=== PATIENT | male | born 1945 | race Caucasian/White ===

== ENCOUNTER 2017-01-18 07:29 | Observation (INO) ==
[2017-01-18 08:07] LABS: Basophils % 0.4 %; Eosinophils # 0.2 K/mcL (0.0-0.6); Hematocrit 44.3 % (37.5-50.1); Hemoglobin 14.7 g/dL (12.9-16.9); Immature Granulocytes % 0.4 % (0-4); Lymphocytes # 2.4 K/mcL (0.6-4.6); Lymphocytes % 24.8 %; Mean Corpuscular HGB Conc 33.2 g/dL (31.6-35.5); Mean Corpuscular Hemoglobin 30.6 pg (28.0-33.3); Mean Corpuscular Volume 92.1 fL (83.0-100.0); Mean Platelet Volume 9.2 fL (9.4-12.4); Monocytes # 0.8 K/mcL (0.0-1.3); Monocytes % 8.2 %; Neutrophils # 6.2 K/mcL (1.6-8.9); Platelet Count 190 K/mcL (140-400); Red Blood Count 4.81 M/mcL (4.19-5.50); Segmented Neutrophils % 64.2 %
[2017-01-18 08:08] LABS: INR 1.1; Prothrombin Time 11.9 Seconds (9.4-12.1)
[2017-01-18 08:10] LABS: Activated Partial Thrombo Time 30.5 Seconds (26.0-36.0)
[2017-01-18 08:14] LABS: BUN/Creatinine Ratio 12 (6-26); Blood Urea Nitrogen 12 mg/dL (8-26); Calcium 9.6 mg/dL (8.6-10.8); Carbon Dioxide 25 mEq/L (19-29); Chloride 103 mEq/L (98-109); Glucose 169 mg/dL (70-99); Osmolality,Calculated 286 (280-300); Potassium 4.2 mEq/L (3.5-4.5); Sodium 136 mEq/L (136-145); eGFR For African Americans > 60 (> 60); eGFR For Non-African Americans > 60 (> 60)
[2017-01-18] MEDS ORDERED: Naloxone 0.4 MG/ML INJ IVP PRN (11:40)
[2017-01-18] MEDS ORDERED: Ondansetron ODT 4 MG TAB.RAPDIS SL PRN (11:40)
[2017-01-18] MEDS ORDERED: Acetaminophen 325 MG TABLET PO PRN (11:40)
--- NOTE | 2017-01-18 11:50 | Internal Med History&Physical ---
<Ashley Harris - Last Filed: 01/18/17 14:01> Date of Encounter: 01/18/17 Time of Encounter: 11:48 Assessment and Plan (1) Sinus bradycardia Current visit: Yes Status: Acute 71-year-old male with history of hypertension, hyperlipidemia, diabetes, hypothyroidism, BPH, diverticulosis presented for evaluation of chest pain and diarrhea yesterday. He noted several episodes of watery diarrhea, fatigue, nausea without vomiting, fever, bilateral lower anterior chest pain that lasted from 0730 until 1800 yesterday. He states that his symptoms resolved yesterday evening and has no pain this morning and he has had no more episodes of diarrhea or chest pain. He was evaluated in the emergency department and all of his lab work was found to be within normal limits, troponin is negative. EKG showed sinus bradycardia.Episodes of bradycardia were noted on telemetry and the patient is noted to be hypertensive with systolic blood pressures in the 150s. The patient is currently afebrile and in no acute distress. The patient notes that he occasionally has episodes of dizziness when standing quickly from a seated position, no episodes of syncope. He does note also that when he takes blood pressure at home he has noted that his heart rate has been in the 40s multiple times. He has discussed this with his PCP who decreased his lilisinopril from 10 mg to 5 mg around 1 year ago. Patient is currently stable and asymptomatic. We will admit to evaluate bradycardia. Plan: -Telemetry, oximetry -Q4hr vitals -ECHO -Cardiac diet -Cardiology consulted, appreciate recommendations -TSH -Hold BP meds -AM labs -GI prophylaxis: omeprazole -DVT prophylaxis: heparin SQ (2) HTN (hypertension) Current visit: Yes Status: Chronic Currently holding lisinopril Qualifiers: Hypertension type: essential hypertension Qualified Code(s): I10 - Essential (primary) hypertension (3) Hyperlipidemia Current visit: No Status: Chronic Continue statin Qualifiers: Hyperlipidemia type: unspecified Qualified Code(s): E78.5 - Hyperlipidemia , unspecified (4) Diabetes mellitus Current visit: Yes Status: Chronic Levemir 40 units daily at bedtime, low-dose sliding scale, ACHS Accu-Checks Qualifiers: Diabetes mellitus type: type 2 Diabetes mellitus complication status: with unspecified complications Diabetes mellitus meterman insulin use: unspecified meterman insulin use status Qualified Code(s): E11.8 - Type 2 diabetes mellitus with unspecified complications (5) Hypothyroidism Current visit: No Status: Chronic Continue home levothyroxine, will check TSH Qualifiers: Hypothyroidism type: unspecified Qualified Code(s): E03.9 - Hypothyroidism , unspecified (6) BPH (benign prostatic hyperplasia) Current visit: No Status: Chronic Continue home meds Qualifiers: Lower urinary tract symptom presence: unspecified whether lower urinary tract symptoms present Qualified Code(s): N40.0 - Benign prostatic hyperplasia without lower urinary tract symptoms (7) DVT prophylaxis Current visit: Yes Status: Acute Heparin SQ Internal Medicine - H&P: HPI Chief complaint: chest pain Admitted From: Emergency Dept Plans for Post Hospital Care: Home History of present illness: Mr. Grier is a 71 year old male with a PMH of hypertension, hyperlipidemia, diabetes hypothyroidism, BPH, and diverticulosis who presented to the emergency department this morning with complaints of chest pain and diarrhea. He states that yesterday he had diarrhea which he states was watery 7 times throughout the day. He also had chest pain in the lower portion of the chest on both the right and left sides that was non-radiating and constant, which "felt like diverticulitis." He states that this pain began around 0730 and lasted until 1800. He states that it was associated with fatigue, fever, nausea without vomiting. She has no recent sick contacts and has not had no other illnesses prior to this episode of diarrhea and chest pain. He does note that he and his traveled to [place] and returned on January 10. He denies any headache, dizziness, vision changes, shortness of breath, palpitations, wheezing, cough, abdominal pain, dysuria, back pain, numbness or tingling, rashes. He notes that he has been taking lisinopril 10 mg a day until about a year ago when it was decreased to 5 mg a day because he told his PCP that he was having episodes of dizziness when he stood up. He does take his blood pressure at home and has noted multiple times that he has had a heart rate in the 40s. He states that he has discussed this with his PCP with no further follow-up. He does not have any cardiac history. He notes that he had a negative stress test 07/08/2005. His only blood pressure medication is lisinopril, he has not taken a beta rico and has had no recent medication changes. He does have a family history of cardiac disease. He states that his mother had heart disease and his father of an ND at age 55. He has never had an ND. While the patient was being evaluated for his chest pain in the emergency department, he was noted to have a heart rate in the 40s on telemetry. An EKG shows sinus bradycardia. The patient was admitted for further workup of his asymptomatic sinus bradycardia. Past Med Surg Social Fam HX - Past Medical History Source: patient Medical history: diabetes, hyperlipidemia, hypertension, thyroid disease ( hypothyroidism), other (diverticulosis, histoplasmosis of left eye, undecended testicle, BPH) Psychiatric history: no psych history - Past Surgical History Surgical History: herniorrhaphy, other (Left eye implant, undecended testicle 1963/1964, wisdom tooth extraction) - Social History Smoking Status: Former smoker (Quit 1969) Smokeless Tobacco Status: No Alcohol use: occasionally Drug use: none Occupational status: retired Current living situation: Home, With Family Activity Level: Independent ambulation Recent Out of Country Travel Within the Last 8 Weeks: No Exposure or Possible Exposure to Illness During Travel: No - Family History Mother Adopted: No Race: Family Member Ethnicity: Non- Living Status: Hx Family Cardiac Disorders: Yes (CAD) Hx Family Autoimmune Disorders: Yes (RA) Father Adopted: No Race: Family Member Ethnicity: Non- Living Status: Age at : 57 Cause of : ND Hx Family Cardiac Disorders: Yes (ND age 55) Internal Medicine - H&P: Meds Aspirin [Ecotrin] 325 mg PO Q48H 01/18/17 [History] Finasteride [Proscar] 5 mg PO DAILY 01/18/17 [History] Insulin Glargine [Lantus] 40 unit SQ HS 01/18/17 [History] Levothyroxine [Synthroid] 150 mcg PO DAILY 01/18/17 [History] Nateglinide [Starlix] 120 mg PO TIDAC 01/18/17 [History] RX: Lisinopril [Zestril] 10 mg PO DAILY 01/18/17 [History] Simvastatin [Zocor] 40 mg PO HS 01/18/17 [History] Tamsulosin [Flomax] 0.4 mg PO DAILY 01/18/17 [History] metFORMIN [Glucophage] 1,000 mg PO BIDWM 01/18/17 [History] 3 Allergy/AdvReac Type Severity Reaction Status Date / Time No Known Allergies Allergy Verified 01/18/17 10:31 All Systems PM: A 10-system review of systems was performed and is negative for pertinent findings except as documented above in the HPI. - Constitutional Vitals: Temp Pulse Resp BP Pulse Ox 98 F 41 16 158/74 99 01/18/17 07:33 01/18/17 11:00 01/18/17 11:42 01/18/17 11:42 01/18/17 11:00 General appearance: Present: cooperative, A&O X 3, pleasant, no acute distress, answers questions appropriately - Head Head exam: Present: atraumatic, normal inspection, normocephalic - Eye Eye exam: Present: conjuntiva pink, sclera anicteric Additional comments: Left eye implant with delayed movement and some visual capabilities Right EOMI, PERRLA - ENT ENT exam: Present: mucous membranes moist, normal oropharynx - Neck Neck exam general surgery: Present: full ROM, normal inspection, supple, trachea midline. Absent: lymphadenopathy, tenderness, nuchal rigidity, thyromegaly - Expanded Neck Exam Neck exam: Absent: carotid bruit - Respiratory Respiratory exam: Present: CTAB. Absent: accessory muscle use, chest wall tenderness, rales, respiratory distress, rhonchi, wheezes, tachypnea - Cardiovascular Cardiovascular exam: Present: bradycardia, +S1, +S2. Absent: diastolic murmur, gallop, irregular rhythm, rubs, systolic murmur - GI/Abdominal GI/Abdominal exam: Present: normal bowel sounds, soft, no peritoneal signs. Absent: distended, tenderness - Neurological Exam Neurological exam: Present: alert, CN II-XII intact, oriented X3, no focal deficits, strengths equal and symetr throughout. Absent: motor sensory deficit , pronater drift, facial droop, speech deficit - Psychiatric Psychiatric exam: Present: normal affect, normal mood - Skin Skin exam: Present: dry, intact, normal color, warm. Absent: erythema, rash Internal Med - H&P Results - Labs CBC & Chem 7: 01/18/17 07:56 01/18/17 07:56 - EKG Data -: EKG Interpreted by Myself Rate: bradycardia <Neeru Ibarra - Last Filed: 01/18/17 16:24> Date of Encounter: 01/18/17 Internal Medicine - H&P: HPI History of present illness: Mr. Grier is a 71 year old male All Systems PM: A 10-system review of systems was performed and is negative for pertinent findings except as documented above in the HPI. - Constitutional Vitals: Temp Pulse Resp BP Pulse Ox 97.6 F 45 15 148/75 96 01/18/17 15:03 01/18/17 15:03 01/18/17 15:03 01/18/17 15:03 01/18/17 15:03 Internal Med - H&P Results - Labs CBC & Chem 7: 01/18/17 07:56 01/18/17 07:56 - Attending Attestation Patient independently seen and examined with family present at bedside. Resting comfortably in bed and denies any distress. Reports history of HR in the 40s but never below 40. States he has no cardiac history. Currently admitted for asymptomatic bradycardia. Restarted home dose of Lisinopril and cardiology consultation requested. Case was discussed with the resident physician Dr. Kelle Harris. I agree with her documented findings, assessment, and plan, except as stated above.
[2017-01-18] MEDS ORDERED: D5% in Water 1,000 ML IVC PRN (11:59)
[2017-01-18] MEDS ORDERED: Dextrose Gel 15 GM PO PRN ×2 (11:59)
[2017-01-18] MEDS ORDERED: *HR* Dextrose 50 % in Water (Syg) 50 ML SYRINGE IVP PRN (11:59)
--- NOTE | 2017-01-18 12:12 | Urgent Care Visit Notes ---
Disposition Clinical Impression: Bradycardia Disposition: Admitted As Inpatient History of Present Illness - General Chief complaint: ED Chest Pain Stated complaint: Chest Pain/EPIGASTRIC PAIN Time Seen by Provider: 01/18/17 07:34 Limitations: no limitations Nursing Notes Reviewed: Yes Vital Signs Reviewed: Yes - History of Present Illness HPI Narrative: 71-year-old male who presents with concern for chest pain. He does have atypical chest pain that started 2 days ago. He denies recent stress testing or cardiac catheterization. He also reports that he has had bradycardia at home. He has no history of beta rico usage or medication changes which would contribute to bradycardia. She denies fever, cough, congestion. Pain Scale: 0 - Related Data Home Medications Medication Instructions Recorded Confirmed Aspirin [Ecotrin] 325 mg PO Q48H 01/18/17 01/18/17 Finasteride [Proscar] 5 mg PO DAILY 01/18/17 01/18/17 Insulin Glargine [Lantus] 40 unit SQ HS 01/18/17 01/18/17 Levothyroxine [Synthroid] 150 mcg PO DAILY 01/18/17 01/18/17 Lisinopril [Zestril] 10 mg PO DAILY 01/18/17 01/18/17 Nateglinide [Starlix] 120 mg PO TIDAC 01/18/17 01/18/17 Simvastatin [Zocor] 40 mg PO HS 01/18/17 01/18/17 Tamsulosin [Flomax] 0.4 mg PO DAILY 01/18/17 01/18/17 metFORMIN [Glucophage] 1,000 mg PO BIDWM 01/18/17 01/18/17 Allergies Allergy/AdvReac Type Severity Reaction Status Date / Time No Known Allergies Allergy Verified 01/18/17 10:31 All systems ED: reviewed and negative except as stated. Past Medical History - Past Medical History Medical history: Reports: diabetes, hyperlipidemia, hypertension, thyroid disease (hypothyroidism), other (diverticulosis, histoplasmosis of left eye, undecended testicle, BPH) Surgical history: Reports: herniorrhaphy, other (Left eye implant, undecended testicle 1963/1964, wisdom tooth extraction) Psychiatric history: Reports: no psych history - Social History Smoking Status: Former smoker (Quit 1969) Smokeless Tobacco Status: No Alcohol use: Reports: occasionally Drug use: Reports: none Physical Exam Sinus bradycardia heart rate 40 bpm on 12-lead ECG. - General Limitations: Present: no limitations General appearance: Present: alert, in no apparent distress - Head Head exam: Present: atraumatic - Eye Eye exam: Present: normal appearance - ENT ENT exam: Present: normal exam - Neck Neck exam: Present: normal inspection - Chest Chest inspection: Present: normal inspection - Respiratory Respiratory exam: Present: normal lung sounds bilaterally - Cardiovascular Cardiovascular exam: Present: regular rate, normal rhythm - Extremities Exam Extremities exam: Present: normal inspection, full ROM - Neurological Exam Neurological exam: Present: alert, oriented X3, CN II-XII intact - Psychiatric Psychiatric exam: Present: normal affect, normal mood - Skin Skin exam: Present: warm, dry Medical Decision Making - [facility] Narrative Medical decision making narrative: 71-year-old male who presents with atypical chest pain. No recent stress testing or cardiac catheterization. Ultimately had negative cardiac biomarkers. Received aspirin. Plan to admit for evaluation of bradycardia which was found incidentally. He is not symptomatically at this time. His heart rate has been stable and he does have sinus bradycardia. I would admit for possible EP consultation versus cardiology consultation. - Medical Records Medical records reviewed: Yes I reviewed the patient's medical records. - Lab Data Lab results reviewed: Yes I reviewed the patient's lab results. Result diagrams: 01/18/17 07:56 01/18/17 07:56 Lab Results 01/18/17 01/18/17 01/18/17 Range/Units 07:56 07:56 07:56 WBC 9.7 (4.3-11.1) K/mcL RBC 4.81 (4.19-5.50) M/mcL Hgb 14.7 (12.9-16.9) g/dL Hct 44.3 (37.5-50.1) % MCV 92.1 (83.0-100.0) fL MCH 30.6 (28.0-33.3) pg MCHC 33.2 (31.6-35.5) g/dL RDW 13.0 (11.5-14.5) % Plt Count 190 (140-400) K/mcL MPV 9.2 L (9.4-12.4) fL Immature Gran % 0.4 (0-4) % Seg Neutrophils % 64.2 % Lymphocytes % 24.8 % Monocytes % 8.2 % Eosinophils % 2.0 % Basophils % 0.4 % Neutrophils # 6.2 (1.6-8.9) K/mcL Lymphocytes # 2.4 (0.6-4.6) K/mcL Monocytes # 0.8 (0.0-1.3) K/mcL Eosinophils # 0.2 (0.0-0.6) K/mcL Basophils # 0.0 (0.0-0.2) K/mcL PT 11.9 (9.4-12.1) Seconds INR 1.1 APTT 30.5 (26.0-36.0) Seconds Sodium (136-145) mEq/L Potassium (3.5-4.5) mEq/L Chloride (98-109) mEq/L Carbon Dioxide (19-29) mEq/L BUN (8-26) mg/dL Creatinine (0.72-1.25) mg/dL Est GFR ( Amer) (> 60) Est GFR (Non-Af Amer) (> 60) BUN/Creatinine Ratio (6-26) Glucose (70-99) mg/dL Calculated Osmolality (280-300) Calcium (8.6-10.8) mg/dL Troponin I (0-0.03) ng/mL Lipase 15 (8-78) Units/L 01/18/17 01/18/17 Range/Units 07:56 07:56 WBC (4.3-11.1) K/mcL RBC (4.19-5.50) M/mcL Hgb (12.9-16.9) g/dL Hct (37.5-50.1) % MCV (83.0-100.0) fL MCH (28.0-33.3) pg MCHC (31.6-35.5) g/dL RDW (11.5-14.5) % Plt Count (140-400) K/mcL MPV (9.4-12.4) fL Immature Gran % (0-4) % Seg Neutrophils % % Lymphocytes % % Monocytes % % Eosinophils % % Basophils % % Neutrophils # (1.6-8.9) K/mcL Lymphocytes # (0.6-4.6) K/mcL Monocytes # (0.0-1.3) K/mcL Eosinophils # (0.0-0.6) K/mcL Basophils # (0.0-0.2) K/mcL PT (9.4-12.1) Seconds INR APTT (26.0-36.0) Seconds Sodium 136 (136-145) mEq/L Potassium 4.2 (3.5-4.5) mEq/L Chloride 103 (98-109) mEq/L Carbon Dioxide 25 (19-29) mEq/L BUN 12 (8-26) mg/dL Creatinine 1.00 (0.72-1.25) mg/dL Est GFR ( Amer) > 60 (> 60) Est GFR (Non-Af Amer) > 60 (> 60) BUN/Creatinine Ratio 12 (6-26) Glucose 169 H (70-99) mg/dL Calculated Osmolality 286 (280-300) Calcium 9.6 (8.6-10.8) mg/dL Troponin I 0.02 (0-0.03) ng/mL Lipase (8-78) Units/L Course Vital Signs Temperature 98 F 01/18/17 07:33 Pulse Rate 51 01/18/17 07:33 Respiratory Rate 16 01/18/17 07:33 Blood Pressure 163/87 01/18/17 07:33 O2 Sat by Pulse Oximetry 97 01/18/17 07:33 Temperature 98.1 F 01/18/17 11:56 Pulse Rate 37 01/18/17 11:56 Respiratory Rate 16 01/18/17 11:56 Blood Pressure 176/76 01/18/17 11:56 O2 Sat by Pulse Oximetry 98 01/18/17 11:56 Oxygen Delivery Oxygen Delivery Room Air
[2017-01-18 12:47] LABS: Magnesium 1.6 mg/dL (1.6-2.6); Phosphorous 2.5 mg/dL (2.3-4.7)
[2017-01-18 13:04] LABS: Thyroid Stimulating Hormone 0.524 mcIU/mL (0.350-4.840)
--- NOTE | 2017-01-18 14:37 | Cardiology Consult Note ---
Date of Encounter: 01/18/17 Time of Encounter: 14:36 Assessment and Plan (1) Sinus bradycardia Current Visit: Yes Status: Acute Sinus bradycardia noted while in ER. Mild dizziness on occasion noted. Telemetry review shows avg HR 41 bpm. HR 30-40. Patient currently asymptomatic. B/o 150-170 systolic noted. Noticed HR in the 40's in the past when taking vitals at home. Not currently on any AV mony blockers. TTE pending. Will consider exercise stress test in the morning to evaluate. (2) HTN (hypertension) Current Visit: Yes Status: Chronic Uncontrolled HTN. Increase lisinopril to 20 mg daily. Low sodium diet. Qualifiers: Hypertension type: essential hypertension Qualified Code(s): I10 - Essential (primary) hypertension Discussion w patient/family: The assessment and plan as outlined above was discussed with the patient and/or family members who expressed understanding and agreement. All questions were answered. Thank you for involving us in the care of your patient. Please call with any questions. History of Present Illness Consult date: 01/18/17 Requesting physician: Ashley Harris Consult reason: Bradycardia Chief complaint: abdominal pain and diarrhea for 24 hours History of present illness: Mr. Grier is a 71 year old male with a history of DM type II, HTN, HLD, and hypothyroidism who presented with 24 hours of midepigastric pain radiating under left rib cage, diarrrhea, and possible fever. While being worked up in the ER he was noted to have HR in the 30's-40's. He admitted to occasional dizziness over the past two years. His dizziness occurs with position change or while he walking. He walks one mile a day with his dog and rides his bike. Denies chest pain or significant SOB. Denies palpitations. Denies orthopnea, PND , or edema. Denies previous syncopal episode. Denies previous history of CAD. Underwent stress test several years ago that was negative. Past Med Surg Social Fam HX - Past Medical History Attestation: Yes The following information was validated with the patient. Medical history: diabetes, hyperlipidemia, hypertension, thyroid disease ( hypothyroidism), other (diverticulosis, histoplasmosis of left eye, undecended testicle, BPH) Psychiatric history: no psych history - Past Surgical History Surgical History: herniorrhaphy, other (Left eye implant, undecended testicle 1963/1964, wisdom tooth extraction) - Social History Smoking Status: Former smoker (Quit 1969) Smokeless Tobacco Status: No Alcohol use: occasionally Drug use: none - Family History Mother Adopted: No Race: Family Member Ethnicity: Non- Living Status: Hx Family Cardiac Disorders: Yes (CAD) Hx Family Autoimmune Disorders: Yes (RA) Father Adopted: No Race: Family Member Ethnicity: Non- Living Status: Age at : 57 Cause of : NC Hx Family Cardiac Disorders: Yes (NC age 55) Medications and Allergies Aspirin [Ecotrin] 325 mg PO Q48H 01/18/17 [History] Finasteride [Proscar] 5 mg PO DAILY 01/18/17 [History] Insulin Glargine [Lantus] 40 unit SQ HS 01/18/17 [History] Levothyroxine [Synthroid] 150 mcg PO DAILY 01/18/17 [History] Lisinopril [Zestril] 10 mg PO DAILY 01/18/17 [History] Nateglinide [Starlix] 120 mg PO TIDAC 01/18/17 [History] Simvastatin [Zocor] 40 mg PO HS 01/18/17 [History] Tamsulosin [Flomax] 0.4 mg PO DAILY 01/18/17 [History] metFORMIN [Glucophage] 1,000 mg PO BIDWM 01/18/17 [History] 3 Allergy/AdvReac Type Severity Reaction Status Date / Time No Known Allergies Allergy Verified 01/18/17 10:31 All Systems Review: A 10-system review of systems was performed and is negative for pertinent findings except as documented above in the HPI. Physical Examination Vital Signs, Last 4 Hours Temp Pulse Resp BP Pulse Ox 01/18/17 13:05 157/76 01/18/17 11:56 98.1 F 37 16 176/76 98 01/18/17 11:42 16 158/74 General: Conversant, No Apparent Distress HEENT: Atraumatic, Normocephaly, Mucus Membranes Moist Neck: No JVD, Normal carotid pulses Cardiac: Reg Rate and Rhythm, Normal S1 and S2, No Murmur Lungs: Normal Breath Sounds, No Wheeze, Rales, Rhonchi Neuro: Alert and responsive, No focal deficits noted Abdomen: Soft, Non-Tender Skin: No rashes noted on visualized skin Musculoskeletal: No Chest Wall Tenderness Extremities: No Clubbing, No Cyanosis, No Edema, Normal Pulses Results 01/18/17 07:56 01/18/17 07:56 - Imaging and Cardiology Echo: pending - EKG Interpretation EKG results cardiology: personally reviewed (SB, HR 44, no acute ST changes.) Consult Discharge Plan - Plan Referrals: Corey Marshall MD [Primary Care Provider] -
[2017-01-18] MEDS: Insulin LISPRO 300 UNITS/3 ML VIAL SQ SCH (17:38)
[2017-01-18] MEDS: *HR* Heparin 5,000 UNIT/ML VIAL SQ SCH (17:38)
[2017-01-18] MEDS ORDERED: Insulin LISPRO 300 UNITS/3 ML VIAL SQ SCH (21:00)
[2017-01-18] MEDS ORDERED: Insulin DETEMIR 100 UNIT/ML X5UNITS SQ SCH (21:00)
[2017-01-18] MEDS ORDERED: Aspirin Enteric Coated 325 MG Tablet PO SCH (21:00)
[2017-01-19 01:47] LABS: Hematocrit 46.2 % (37.5-50.1); Hemoglobin 15.4 g/dL (12.9-16.9); Mean Corpuscular HGB Conc 33.3 g/dL (31.6-35.5); Mean Corpuscular Hemoglobin 30.5 pg (28.0-33.3); Mean Corpuscular Volume 91.5 fL (83.0-100.0); Mean Platelet Volume 9.5 fL (9.4-12.4); Platelet Count 229 K/mcL (140-400); Red Blood Count 5.05 M/mcL (4.19-5.50)
[2017-01-19 01:58] LABS: BUN/Creatinine Ratio 10 (6-26); Blood Urea Nitrogen 10 mg/dL (8-26); Carbon Dioxide 28 mEq/L (19-29); Chloride 103 mEq/L (98-109); Glucose 131 mg/dL (70-99); Osmolality,Calculated 285 (280-300); Potassium 3.9 mEq/L (3.5-4.5); Sodium 137 mEq/L (136-145); eGFR For African Americans > 60 (> 60); eGFR For Non-African Americans > 60 (> 60)
[2017-01-19] MEDS: *HR* Heparin 5,000 UNIT/ML VIAL SQ SCH (06:00)
--- NOTE | 2017-01-19 06:20 | Electrocardiograph Report ---
[facility] Test Date: 2017-01-18 Pat Name: Rc Grier Department: [id number] Room: 3B35 Gender: M Filling Operator: LETTY : 1945 Requested By: Dereje Pruett Order Number: [id number] Reading MD: Ezequiel Atkinson MD Measurements Intervals [place] Rate: 44 P: -6 VT: 144 QRS: -9 QRSD: 99 T: 8 QT: 443 QTc: 393 Interpretive Statements SINUS BRADYCARDIA Electronically Signed On 01-19-2017 6:18:52 EDT by Ezequiel Atkinson MD
[2017-01-19] MEDS: Insulin LISPRO 300 UNITS/3 ML VIAL SQ SCH ×2 (07:47→12:52)
[2017-01-19] MEDS ORDERED: Finasteride 5 MG TABLET PO SCH (09:00)
--- NOTE | 2017-01-19 10:35 | Cardiology Progress Note ---
Date of Encounter: 01/19/17 Time of Encounter: 10:31 Assessment and Plan (1) Sinus bradycardia Current Visit: Yes Status: Acute Sinus bradycardia noted while in ER. Mild dizziness on occasion noted. HR in the 30's noted this morning and he was asymptomatic. Stress echocardiogram completed this morning. Negative for chronotropic incompetence. Final results pending. Telemetry review shows avg HR 41 bpm. HR 30-40 this am. HE increased to 60 when sitting up. Not currently on any AV mony blockers. TTE: Sinus bradycardia, heart rate 40's. LVEF 60%. Normal left ventricular size and systolic function. Mild concentric hypertrophy of the left ventricle. There is evidence of moderate diastolic dysfunction of the left ventricle.Normal right ventricular size and function. Mild mitral regurgitation. Mild tricuspid regurgitation. No pulmonary hypertension. Stress echo pending. Further recommendations to follow. (2) HTN (hypertension) Current Visit: Yes Status: Chronic Uncontrolled HTN. Increase lisinopril to 20 mg daily. Low sodium diet. Qualifiers: Hypertension type: essential hypertension Qualified Code(s): I10 - Essential (primary) hypertension (3) Chest pain Current Visit: Yes Status: Acute Atypical lower left chest wall pain and mid epigastric pain associated with diarrhea. EKG with no acute change, SB. Troponin negative. TTE shows preserved LV function. No WMA. Cardiac risk factors include HTN, HLD, DM type II, and family history (father MN at age 55). Stress echocardiogram to further evaluate bradycardia and chest pain. Results pending. Qualifiers: Chest pain type: unspecified Qualified Code(s): R07.9 - Chest pain, unspecified Discussion w patient/family: The assessment and plan as outlined above was discussed with the patient and/or family members who expressed understanding and agreement. All questions were answered. Thank you for involving us in the care of your patient. Please call with any questions. Subjective Principal diagnosis: bradycardia, epigastric/ chest pain Interval history: Mr. Grier was seen in the stress lab. he underwent stress echocardiogram. He walked on the treadmill for approximately six minutes. He was able to achieve target HR. He denied chest pain or abdominal pain. Denies recurrent symptoms overnight. HR in the 30's this morning. He denies dizziness or lightheadedness. Objective Vital Signs, Last 4 Hours Temp Pulse Resp BP Pulse Ox 01/19/17 07:29 97.6 F 44 15 129/78 91 General: Conversant, No Apparent Distress HEENT: Atraumatic, Normocephaly, Mucus Membranes Moist Neck: No JVD, Normal carotid pulses Cardiac: Reg Rate and Rhythm, Normal S1 and S2, No Murmur Lungs: Normal Breath Sounds, No Wheeze, Rales, Rhonchi Neuro: Alert and responsive, No focal deficits noted Abdomen: Soft, Non-Tender Skin: No rashes noted on visualized skin Musculoskeletal: No Chest Wall Tenderness Extremities: No Clubbing, No Cyanosis, No Edema, Normal Pulses Results 01/19/17 01:21 01/19/17 01:21 Lab Results 01/19/17 01/19/17 01/19/17 01:21 01:21 01:21 WBC 11.1 Hgb 15.4 Hct 46.2 Plt Count 229 Sodium 137 Potassium 3.9 Chloride 103 Carbon Dioxide 28 BUN 10 Creatinine 0.99 Glucose 131 H Calcium 10.0 Troponin I 0.01 01/19/17 06:28 WBC Hgb Hct Plt Count Sodium Potassium Chloride Carbon Dioxide BUN Creatinine Glucose Calcium Troponin I 0.02 - EKG Interpretation EKG results cardiology: personally reviewed (SR, HR [address] changes at baseline.) Consult Discharge Plan - Plan Referrals: Corey Marshall MD [Primary Care Provider] -
--- NOTE | 2017-01-19 14:54 | Discharge Summary ---
Date of Encounter: 01/19/17 Time of Encounter: 14:00 - Discharge Diagnosis (1) Chest pain Priority: Primary Status: Resolved Comments: Patient denied chest pain on day of discharge. Stress echo unremarkable per cardiology who cleared him for outpatient follow-up. ACS ruled out. Qualifiers: Chest pain type: unspecified Qualified Code(s): R07.9 - Chest pain, unspecified (2) Sinus bradycardia Priority: Primary Status: Acute Comments: Asymptomatic. Stress echo negative. 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 Follow-up outpatient Qualifiers: Diabetes mellitus type: type 2 Diabetes mellitus complication status: with unspecified complications Diabetes mellitus care home insulin use: unspecified director long term care insulin use status Qualified Code(s): E11.8 - Type 2 diabetes mellitus with unspecified complications (6) Hypothyroidism Priority: Secondary Status: Chronic Comments: TSH normal Qualifiers: Hypothyroidism type: unspecified Qualified Code(s): E03.9 - Hypothyroidism , unspecified (7) BPH (benign prostatic hyperplasia) Priority: Secondary Status: Chronic Comments: Patient denies current symptoms. Qualifiers: Lower urinary tract symptom presence: unspecified whether lower urinary tract symptoms present Qualified Code(s): N40.0 - Benign prostatic hyperplasia without lower urinary tract symptoms (8) DVT prophylaxis Priority: Primary Status: Acute Comments: Subcutaneous heparin while admitted - Discharge Medications Prescriptions: Omeprazole [PriLOSEC] 20 mg PO DAILY@0630 #30 Home Medications: Aspirin [Ecotrin] 325 mg PO Q48H 01/18/17 [History] Finasteride [Proscar] 5 mg PO DAILY 01/18/17 [History] Insulin Glargine [Lantus] 40 unit SQ HS 01/18/17 [History] Levothyroxine [Synthroid] 150 mcg PO DAILY 01/18/17 [History] Lisinopril [Zestril] 10 mg PO DAILY 01/18/17 [History] Nateglinide [Starlix] 120 mg PO TIDAC 01/18/17 [History] Simvastatin [Zocor] 40 mg PO HS 01/18/17 [History] Tamsulosin [Flomax] 0.4 mg PO DAILY 01/18/17 [History] metFORMIN [Glucophage] 1,000 mg PO BIDWM 01/18/17 [History] Omeprazole [PriLOSEC] 20 mg PO DAILY@0630 #30 01/19/17 [Rx] Allergies/Adverse Reactions: 3 Allergy/AdvReac Type Severity Reaction Status Date / Time No Known Allergies Allergy Verified 01/18/17 10:31 Procedures/tests Complete & Pending: Procedures Performed prior 72 hours Category Date Time Status ECG 12 lead ECG [ECG] Routine Y 01/19/17 00:17 Completed EV echocardiogram Routine Y 01/18/17 11:40 Completed EV stress echo Routine Y 01/19/17 18:45 Completed Date of admission: 01/18/17 11:25 Primary care physician: Corey Marshall MD Consults: 01/18/17 11:44 Consult to Physician [CONS] Routine Consulting Provider: Grant Onofre Reason for Consult: asymptomatic bradycardia Time Notified: 11:46 Call Completed: Yes Discharging clinician: Arely Arvizu Anticipated date of discharge: 01/19/17 - Patient Status Disposition: Home, Self-Care Condition: Good Functional capacity at discharge: independent ambulation Overall status at discharge: patient is back to baseline - Discharge Instructions Follow Up With: Corey Marshall MD [Primary Care Provider] - Yadiel Jacinto MD [Partnered Physician] - Forms: ED Satisfaction Letter Additional Instructions: Follow-up with primary care provider and cardiology within 1-2 weeks - Diet and Activity Activity: increase activity as tolerated Diet: diabetic diet, low fat, low cholesterol, low salt diet Hospital course: Mr. Grier is a 71 year old male with past medical history of uncontrolled diabetes on insulin, hyperlipidemia, hypertension, hypothyroidism, BPH, diverticulosis. Patient presented to the emergency department chief complaint of chest pain and diarrhea. Patient stated he had diarrhea on the day prior to presentation. He also endorsed chest pain in the lower portion of his chest on bilateral sides that did not radiate and was constant. Patient stating he has had diverticulitis in the past and this felt similar to his diverticulitis. Patient stating the pain began on the morning of presentation and lasted all day and was associated with fatigue, fever, nausea but no vomiting. Patient denied sick contacts. He does state that him and his recently traveled to [place] and return to 2 weeks prior to presentation. Patient denied headache , dizziness, vision changes, shortness of breath, palpitations, cough, abdominal pain. Patient stating his primary care provider recently decrease his lisinopril dosage secondary to episodes of dizziness upon standing. 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 Patient denies cardiac history. Workup in the emergency department unremarkable other than sinus bradycardia. Chest x-ray negative. Abdominal pelvic CTA negative for acute processes. Chest CTA negative for acute processes. Diverticulosis noted without evidence of diverticulitis. Cholelithiasis without acute features also noted. Patient was admitted to the hospitalist service for further evaluation and management. Troponins negative 3. Echocardiogram unremarkable with ejection fraction of 60% with moderate diastolic dysfunction. Patient euvolemic on examination during this admission and denied shortness of breath. Cardiology was brought on board who proceeded with a stress echo that was also unremarkable. He was cleared for outpatient follow-up from a cardiac perspective. The patient no longer had chest pain while admitted. ACS ruled out. He will follow up with electrophysiology cardiology. Patient did endorse reflux symptoms-he was started on omeprazole. He was discharged home in stable condition with close outpatient follow-up recommended. ITS Impressions Chest X-Ray 01/18/17 07:43 IMPRESSION: 1. No active pulmonary disease. D/ / Florencio Foley MD / Florencio Foley MD Interpreting Provider: Florencio Foley MD Abdomen/Pelvis CTA 01/18/17 07:50 IMPRESSION: 1. No acute aortic pathology. No aneurysm or dissection. Mild aortic plaque disease. 2. No acute pulmonary findings. 3. Cholelithiasis with no acute features. 4. Interval resolution of diverticulitis. Colonic diverticulosis with no CT evidence of diverticulitis. 5. Hepatic steatosis. 6. A 15 mm cystic lesion in the pancreatic tail. The lesion appears grossly stable compared to previous noncontrast CT. Dilated accessory pancreatic duct. Follow-up evaluation using CT or MRI pancreatic protocol is recommended in 1 year. D/ /18/2017 10:11:54 Jared Corona MD / sue Interpreting Provider: Jared Corona MD Chest CTA 01/18/17 07:50 IMPRESSION: 1. No acute aortic pathology. No aneurysm or dissection. Mild aortic plaque disease. 2. No acute pulmonary findings. 3. Cholelithiasis with no acute features. 4. Interval resolution of diverticulitis. Colonic diverticulosis with no CT evidence of diverticulitis. 5. Hepatic steatosis. 6. A 15 mm cystic lesion in the pancreatic tail. The lesion appears grossly stable compared to previous noncontrast CT. Dilated accessory pancreatic duct. Follow-up evaluation using CT or MRI pancreatic protocol is recommended in 1 year. D/ /18/2017 10:11:54 Jared Corona MD / sue Interpreting Provider: Jared Corona MD Echocardiogram Date of Study: 01/18/2017 Impressions: Sinus bradycardia, heart rate 40's. LVEF 60%. Normal left ventricular size and systolic function. Mild concentric hypertrophy of the left ventricle. There is evidence of moderate diastolic dysfunction of the left ventricle. Normal right ventricular size and function. Mild mitral regurgitation. Mild tricuspid regurgitation. No pulmonary hypertension. Stress Echo No Doppler Date of Study: 01/19/2017 Indications: Chest pain, Bradycardia Impressions: Technically difficult study due to suboptimal echo windows. Post-exercise echo images were poor in quality. The exercise capacity was average. Stress ECG is negative for ischemia. Baseline normal LV systolic function, LVEF 55%. Post-exercise echo images were poor in quality. No obvious stress-induced wall motion abnormalities in the visualized segments. - Time Spent with Patient Total time spent providing and/or coordinating discharge services: - Constitutional Vitals: Temp Pulse Resp BP Pulse Ox 97.8 F 51 18 126/78 98 01/19/17 11:25 01/19/17 11:25 01/19/17 11:25 01/19/17 11:25 01/19/17 11:25 General appearance: Present: cooperative, A&O X 3, pleasant, no acute distress, answers questions appropriately - Head Head exam: Present: atraumatic, normocephalic - Eye Eye exam: Present: PERRL, conjuntiva pink, sclera anicteric Pupils: Present: PERRL - Neck Neck exam general surgery: Present: supple, trachea midline. Absent: lymphadenopathy - Respiratory Respiratory exam: Present: CTAB. Absent: accessory muscle use, rales, respiratory distress, rhonchi, wheezes - Cardiovascular Cardiovascular exam: Present: RRR, +S1, +S2. Absent: diastolic murmur, gallop, rubs, systolic murmur - GI/Abdominal GI/Abdominal exam: Present: normal bowel sounds, soft, no peritoneal signs. Absent: distended, tenderness - Extremities Exam Extremities exam: Present: warm, radial pulses palpable and symmetrical. Absent : calf tenderness, cyanotic, pedal edema - Neurological Exam Neurological exam: Present: alert, CN II-XII intact, normal gait, oriented X3, no focal deficits, strengths equal and symetr throughout. Absent: pronater drift, facial droop, speech deficit - Skin Skin exam: Present: dry, intact, normal color, warm
--- NOTE | 2017-01-19 14:56 | Electrocardiograph Report ---
[place] [id number] Test Date: 2017-01-19 Pat Name: Rc Grier Department: 113 Room: 3B Gender: M Plant Utility Person: [place] : 1945 Requested By: Arely Arvizu Order Number: [id number] Reading MD: Chang Ramos MD Measurements Intervals [place] Rate: 42 P: 23 MD: 156 QRS: 19 QRSD: 101 T: 30 QT: 452 QTc: 392 Interpretive Statements SINUS BRADYCARDIA Electronically Signed On 01-19-2017 14:54:15 EDT by Chang Ramos MD
[2017-01-19 16:00] VITALS: BP 128/67
== END 2017-01-19 16:58 | disposition home or self-care (01) ==
LOC: 3BNU 07:29 → EMEROO 07:29 → 3BNU 11:46
PROVIDERS: ADMIT Internal Medicine; ATTEND Nurse Practitioner Family